=== PATIENT | male | born 1985 | race Caucasian/White ===

== ENCOUNTER 2022-06-26 21:52 | Emergency (ER) | payer BC ==
[~2022-06-26] VITALS: Ht 188 cm; Wt 117.9 kg
--- NOTE | 2022-06-26 22:26 | NUR ---
being seen and examined by MD at this time, gf at bedside
[2022-06-26] MEDS ORDERED: LIDOCAINE VISCUS 2% 15 ML UDC ONE (22:37)
[2022-06-26] MEDS ORDERED: PANTOPRAZOLE SODIUM 40 MG VIAL ONE (22:38)
[2022-06-26] MEDS ORDERED: MAG HYDROX/AL HYDROX/SIMETH 30 ML LIQUID UDC ONE (22:38)
[2022-06-26] MEDS ORDERED: LIDOCAINE VISCUS 2% 15 ML UDC MM ONE (22:45)
[2022-06-26] MEDS ORDERED: MAG HYDROX/AL HYDROX/SIMETH 30 ML LIQUID UDC PO ONE (22:45)
[2022-06-26] MEDS ORDERED: IV NORMAL SALINE 1000 ML BAG IV ONE (22:45)
[2022-06-26] MEDS ORDERED: PANTOPRAZOLE SODIUM 40 MG VIAL IV ONE (22:45)
[2022-06-26] MEDS ORDERED: IOHEXOL 300MG/ML 100 ML INFUS..BTL ONE (22:46)
[2022-06-26] MEDS ORDERED: IV NORMAL SALINE 250 ML IV ONE (22:46)
[2022-06-26] MEDS ORDERED: SWABABLE VALVE TRANSFER SET EA MC ONE (22:46)
[2022-06-26 22:53] LABS: HEMATOCRIT 45.2 % (36.7-47.1); MEAN CORPUSCULAR HEMOGLOBIN 29.4 uug (23.8-33.4); MEAN CORPUSCULAR VOLUME 85.1 fL (73.0-96.2); PLATELET COUNT (AUTO) 313 K/uL (152-348)
[2022-06-26 22:54] LABS: CREATININE 1.4 mg/dL (0.6-1.3); POTASSIUM 3.7 mmol/L (3.5-5.1)
[2022-06-26 23:00] LABS: BILIRUBIN,TOTAL 0.2 mg/dL (0.2-1.0); TOTAL PROTEIN, SERUM 7.8 g/dL (6.4-8.2)
--- NOTE | 2022-06-26 23:00 | NUR ---
IV started with saline lock on LT AC 20 Gauge.
--- NOTE | 2022-06-26 23:19 | NUR ---
Lab called. Creatinine was 1.4. Doctor made aware.
--- NOTE | 2022-06-26 23:22 | NUR ---
Patient was taken to CT Scan by solder technician.
[2022-06-26] MEDS ORDERED: IV NORMAL SALINE 500 ML BAG IV ONE (23:30)
--- NOTE | 2022-06-26 23:40 | NUR ---
Patient was brought back from CT scan by radiology transporter.
--- NOTE | 2022-06-27 00:05 | NUR ---
IV NS 1L completed.
--- NOTE | 2022-06-27 01:30 | NUR ---
Patient's Girlfriend at bedside with him.
[2022-06-27] MEDS ORDERED: METRONIDAZOLE 500 MG/NS 100 ML PIGGYBACK IV ONE (03:15)
[2022-06-27] MEDS ORDERED: CEFTRIAXONE 1 G in IV DEXTROSE 5% 50 ML IV ONE (03:15)
[2022-06-27] MEDS ORDERED: METRONIDAZOLE 500 MG/NS 100ML 100 ML IV ONE (03:19)
[2022-06-27] MEDS ORDERED: CEFTRIAXONE /D5W 50ML IVPB **ER PYXIS IV ONE (03:21)
[2022-06-27] MEDS ORDERED: OMEP20CA15 PO (03:29)
[2022-06-27] MEDS ORDERED: METR-147 PO (03:29)
[2022-06-27] MEDS ORDERED: CIPR500T5 PO (03:30)
[2022-06-27 03:38] VITALS: BP 120/80
--- NOTE | 2022-06-27 03:38 | NUR ---
gave all due meds as ordered. ATB tx with no s/e noted. IV removed
--- NOTE | 2022-06-27 03:40 | NUR ---
Patient discharged to home in stable condition. Written and verbal after care instructions given. Patient verbalizes understanding of instructions. Stressed follow up or return to ER for worsening s/s.
== END 2022-06-27 03:40 | disposition home or self-care (01) ==
LOC: ER 21:52
DX: K52.9 Noninfective gastroenteritis and colitis, unspecified (principal); E83.52 Hypercalcemia; I88.0 Nonspecific mesenteric lymphadenitis; N17.9 Acute kidney failure, unspecified
CPT/HCPCS: 99285; 74177; 96374; 80053; 85025; 85730; 36415; 96375; Q9967; C9113; J7040 ×2; J0696; J3490; A4663